=== PATIENT | male | born 1955 | race Caucasian/White ===

== ENCOUNTER → 2021-11-09 | Day surgery (SDC) | payer OTHER ==
[~2021-11-09] VITALS: Ht 188 cm; Wt 90.7 kg
[~2021-11-09] MED LIST: ALLERGY RELIEF5 MG PO; DIAZEPAM 5MG TAB5 MG PO; FAMOTIDINE40 MG PO; LIPITOR 10MG TA10 MG PO; LYRICA 50MG CAP50 MG PO; MVI PO; SUPER B MAXI C0.4 MG PO; TRAMADOL HCL50 MG PO; VIT D3 PO; WARFARIN SODIU2.5 MG PO; ZESTRIL5 MG PO
== END | disposition home or self-care (01) ==
LOC: FAS 11:25
DX: K92.1 Melena (principal); K52.89 Other specified noninfective gastroenteritis and colitis; K63.5 Polyp of colon; K62.1 Rectal polyp; K64.8 Other hemorrhoids; K64.4 Residual hemorrhoidal skin tags; K25.9 Gastric ulcer, unspecified as acute or chronic, without hemorrhage or perforation; K29.60 Other gastritis without bleeding; K63.3 Ulcer of intestine; K57.30 Diverticulosis of large intestine without perforation or abscess without bleeding; R19.4 Change in bowel habit; I10 Essential (primary) hypertension; K21.9 Gastro-esophageal reflux disease without esophagitis; Z86.010 Personal history of colon polyps; Z79.01 Long term (current) use of anticoagulants; Z88.5 Allergy status to narcotic agent; Z72.0 Tobacco use
CPT/HCPCS: J2704; J7120